=== PATIENT | female | born 1940 | race Caucasian/White ===

== ENCOUNTER → 2016-12-02 | Outpatient (CLI) | payer MEDICARE, BC | LOC: CLAB 11:08 | PROVIDERS: ATTEND Internal Medicine | DX: R06.02 Shortness of breath (principal); R94.5 Abnormal results of liver function studies | CPT/HCPCS: 36415; 82565; 84520 ==

== ENCOUNTER → 2016-12-27 | Outpatient (CLI) | payer MEDICARE, BC ==
--- NOTE | 2017-01-10 12:59 | RSPPFT ---
DATE OF PROCEDURE: 12/27/16 COMMENTS: VOLUMES DYNAMIC: FVC mildly reduced; FEV1 normal. STATIC: TLC, RV mildly reduced. DIFFUSION: Normal. FLOW VOLUME LOOP: Normal configuration. IMPRESSION: Very mild reduction in FVC with normal diffusion capacity and a mild reduction in total lung capacity. Clinical correlation is required but there may be a mild restrictive ventilatory defect.
== END ==
LOC: HRSP 10:24
PROVIDERS: ATTEND Internal Medicine
DX: R06.02 Shortness of breath (principal)
CPT/HCPCS: 94060; 94620; 94729; 95012